=== PATIENT | female | born 1950 | race Caucasian/White ===

== ENCOUNTER → 2021-05-26 | Outpatient (CLI) | payer MEDICARE | LOC: MC.RAD 11:20 | DX: Z12.31 Encounter for screening mammogram for malignant neoplasm of breast (principal) ==

== ENCOUNTER → 2022-06-25 | Outpatient (CLI) | payer MEDICARE | LOC: MC.RAD 10:30 | DX: Z12.31 Encounter for screening mammogram for malignant neoplasm of breast (principal); N64.89 Other specified disorders of breast ==

== ENCOUNTER → 2022-06-29 | Outpatient (CLI) | payer MEDICARE | LOC: COL.RAD 06-15 08:15 | DX: R63.4 Abnormal weight loss (principal); R93.5 Abnormal findings on diagnostic imaging of other abdominal regions, including retroperitoneum; Z87.19 Personal history of other diseases of the digestive system | CPT/HCPCS: A9575 ==

== ENCOUNTER → 2022-07-01 | Outpatient (CLI) | payer MEDICARE | LOC: MC.RAD 14:21 | DX: R92.8 Other abnormal and inconclusive findings on diagnostic imaging of breast (principal) ==

== ENCOUNTER 2023-02-10 11:33 | Emergency (ER) | payer MEDICARE ==
[~2023-02-10] VITALS: Ht 165.1 cm; Wt 70.5 kg
[2023-02-10 11:46] VITALS: TEMP 98
[2023-02-10 13:05] VITALS: BP 182/83; PULSE 60
== END 2023-02-10 13:05 | disposition home or self-care (01) ==
LOC: COL.ER 11:33
DX: S09.90XA Unspecified injury of head, initial encounter (principal); I48.91 Unspecified atrial fibrillation; Z79.01 Long term (current) use of anticoagulants; Z87.891 Personal history of nicotine dependence; W22.09XA Striking against other stationary object, initial encounter; Y92.39 Other specified sports and athletic area as the place of occurrence of the external cause